=== PATIENT | female | born 1970 | race Caucasian/White ===

== ENCOUNTER 2025-01-14 13:02 | Outpatient (AMB) | payer OTHER, SELFPAY ==
--- NOTE | 2025-01-14 13:13 | MHC.PC.OV ---
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 Intake Note: New patient visit Chuck Boner Required: No Allergies Sulfa (Sulfonamide Antibiotics) Allergy (Severe, Verified 01/14/25 13:17) Migraine sulfamethoxazole [From Bactrim] Allergy (Unknown, Verified 01/14/25 13:17) Headache trimethoprim [From Bactrim] Allergy (Unknown, Verified 01/14/25 13:17) Headache Medication List - Last Reconciled 01/14/25 by Janice Campuzano MD apremilast (Otezla) mg PO betamethasone valerate 0.1% 1 appl topical DAILY PRN omeprazole 40 mg PO DAILY paroxetine HCl 10 mg PO DAILY sumatriptan succinate take 1 tab at onset of headache; if no relief may repeat 1 tab after at least 2 hrs; max = 4 tabs/24 hr PO tirzepatide (weight loss) (Zepbound) 2.5 mg (0.5 mL) subcut QWEEK Tobacco use date assessed: 01/14/25 Dental Screening Dental Screen Date: 01/14/25 Did you have a dental visit in the last 12 months?: Yes Did you have a dental problem in the last 6 months where you did not have access to dental care?: No Was dental information given to patient?: Patient has dentist HPI HPI Comments History of Present Illness Details 54 year old female with a past medical history of anxiety, GERD, psoriasis, migraines presenting to reestablish care Anxiety/depression: Stable on paxil 10mg daily. Previously tried wellbutrin, stopped when ran out. Thinks she would like to stay off of it. She continues to follow with a counselor every 2 weeks. GERD: Stable on PPI. Was following with Dr [place]. History of gastritis on EGD. xrt thought to have played a role. The pantoprazole does not seem to be working anymore. Heme/onc: history of right breast cancer diagnosed in 2011. s/p chemo, xrt and double mastectomy. s/p hysterectomy BSO 09/2014. Was following with Dr Alcantara, retired. Has appt in April. Psoriasis: low dose otezla -working great. follows with [facility] ROS CONSTITUTIONAL: Denies weight loss, fever and chills. HEENT: Denies changes in vision and hearing. RESPIRATORY: Denies SOB and cough. CV: Denies palpitations and CP GI: Denies abdominal pain, nausea, vomiting and diarrhea. : Denies dysuria and urinary frequency. MSK: Denies new myalgia and joint pain. SKIN: Denies rash and pruritus. NEUROLOGICAL: Denies headache PSYCHIATRIC: Denies recent changes in mood. PHYSICAL EXAM: GENERAL: Alert and oriented x 3. NAD EYES: EOMI. Anicteric. HENT: Moist mucous membranes. No scleral icterus. No cervical lymphadenopathy. LUNGS: Clear to auscultation bilaterally. CARDIOVASCULAR: Regular rate and rhythm. No murmur. No JVD. ABDOMEN: Soft, non-tender +bs EXTREMITIES: No edema. Non-tender. SKIN: No rashes or lesions. Warm. NEUROLOGIC: No focal neurological deficits. CN II-XII grossly intact PSYCHIATRIC: Cooperative. Appropriate mood and affect [facility] Surgical History H/O tubal ligation H/O dilation and curettage Hx of appendectomy H/O LEEP H/O bilateral mastectomy H/O: hysterectomy Family History Mother Diabetes mellitus HTN (hypertension) High cholesterol Father Acute myocardial infarction Pulmonary embolism Asthma HTN (hypertension) High cholesterol Cardiovascular disease Cancer of kidney Maternal Grandmother Cardiovascular disease Cancer Paternal Grandfather Cardiovascular disease Paternal Grandfather Cancer Social History Housing: House Alcohol intake: current Patient Tobacco Use Status: Never used Tobacco e-Cigarette/Vaping Use: Never Used Second Hand Smoke Exposure: No service: No Current occupational status: unemployed Current occupational exposures/hazards: No Cognitive needs: No Hearing needs: No Vision needs: Yes (glasses) Questionnaire PHQ-9 Over the last 2 weeks, how often have you been bothered by any of the following problems? 1. Little interest or pleasure in doing things: several days 2. Feeling down, depressed, or hopeless: several days 3. Trouble falling or staying asleep, or sleeping too much: several days 4. Feeling tired or having little energy: not at all 5. Poor appetite or overeating: several days 6. Feeling bad about yourself - or that you are a failure or have let yourself or your family down: not at all 7. Trouble concentrating on things, such as reading the newspaper or watching television: several days 8. Moving or speaking so slowly that other people could have noticed. Or the opposite - being so fidgety or restless that you have been moving around a lot more than usual: not at all 9. Thoughts that you would be better off or of hurting yourself in some way: not at all Total score: 5 Depression Screening Interpretation: Positive Depression Screening Follow-up: Existing condition Depression Screening Done: Yes 78221 - PHQ-9 Billing: Yes Source: Developed by Drs. Poncho Galvan, Daja Schwab, Khoi Enciso and colleagues, with an educational serina from [employer]. Thrive Questionnaire Date Thrive assessed: 01/14/25 I am a: Patient What is your living situation today?: I have a steady place to live Within the past 12 months, did the food you bought not last and you didn't have the money to get more?: Never true Within the past 12 months, did you worry whether your food would run out before you got money to buy more?: Never true Do you have trouble paying for medicines?: No Do you have trouble getting transportation to medical appointments?: No Do you have trouble paying your heating and electricity bill?: No Do you have trouble taking care of your child, family member or friend?: No Do you have trouble with day-to-day activities such as bathing, preparing meals, shopping, managing finances, etc.?: No Are you currently unemployed and looking for a job?: No Are you interested in more education?: No Please select the resources that you would like help with: None Currently or been in a relationship where the following occur: No concerns reported THRIVE Score: 0 AUDIT C Alcohol Use Questionnaire (AUDIT-C) 1. How often do you have a drink containing alcohol?: Never 3. How often do you have six or more drinks on one occasion?: Never Total Score: 0 BOBBY-7 AMB Questionnaire BOBBY-7 Date BOBBY - 7 assessed: 01/14/25 Feeling nervous, anxious, or on edge: 1 = Several days Not being able to stop or control worryin = Several days Worrying too much about different things: 1 = Several days Trouble relaxin = Several days Being so restless that it is hard to sit still: 0 = Not at all Becoming easily annoyed or irritable: 1 = Several days Feeling afraid as if something awful might happen: 0 = Not at all Total BOBBY-7 score (0-4 normal; 5-9 mild; 10-14 moderate; 15-21 severe): 5 Source: Developed by Drs. Poncho Galvan, Daja Schwab, Khoi Enciso and colleagues, with an educational serina from [employer]. BOBBY-7 Assessment Billing BOBBY-7 Assessment Tool: BOBBY-7 Assessment 19103 Physical exam (Primary Care) Vital Signs: Last Vital Signs Pulse 82 01/14/25 13:23 Resp 16 01/14/25 13:23 BP 134/100 H 01/14/25 13:31 Pulse Ox 97 01/14/25 13:23 Oxygen Delivery Method Room Air 01/14/25 13:23 BMI result Body Mass Index 38.8 Tobacco/Smoking Status: Tobacco use Status Tobacco use date assessed 01/14/25 01/14/25 13:25 Patient Tobacco Use Status Never used Tobacco 01/14/25 13:38 e-Cigarette/Vaping Use Never Used 01/14/25 13:38 PHQ-9: PHQ-9 Score PHQ-9: Total score 5 01/14/25 13:46 Depression Screening Interpretation: Positive Depression Screening Follow-up: Existing condition Thrive Assessment: Date of Thrive Assessment Date Thrive assessed 01/14/25 01/14/25 13:39 Currently or been in a relationship where the following occur: No concerns reported Coding Level of Care Code Est Pt Level 4 (06339) Complex EM visit Add On G2211 Diagnoses Primary hypertension I10 Hypertension type: primary hypertension Anxiety F41.9 Obesity (BMI 30-39.9) E66.9 Gastroesophageal reflux disease, unspecified whether esophagitis present K21.9 Esophagitis presence: esophagitis presence not specified Gastritis without bleeding, unspecified chronicity, unspecified gastritis type K29.70 Chronicity: unspecified Gastritis bleeding: without bleeding Gastritis type: unspecified gastritis Additional Codes BOBBY-7 Assessment Billing - BOBBY-7 Assessment Tool: BOBBY-7 Assessment 60769 ([id number]) PHQ-9 - 97034 - PHQ-9 Billing: Yes ([id number]) Assessment & Plan Assessment & Plan (1) Hypertension: Code(s): I10 - Essential (primary) hypertension Category: Medical Qualifiers: Hypertension type: primary hypertension Qualified Code(s): I10 - Essential (primary) hypertension (2) Anxiety: Code(s): F41.9 - Anxiety disorder, unspecified Category: Medical (3) Obesity (BMI 30-39.9): Code(s): E66.9 - Obesity, unspecified Category: Medical (4) GERD (gastroesophageal reflux disease): Code(s): K21.9 - Gastro-esophageal reflux disease without esophagitis Category: Medical Qualifiers: Esophagitis presence: esophagitis presence not specified Qualified Code(s): K21.9 - Gastro-esophageal reflux disease without esophagitis (5) Gastritis: Code(s): K29.70 - Gastritis, unspecified, without bleeding Category: Medical Qualifiers: Chronicity: unspecified Gastritis bleeding: without bleeding Gastritis type: unspecified gastritis Qualified Code(s): K29.70 - Gastritis, unspecified, without bleeding Plan Reestablish care Interval history reviewed HTN-needs to restart medications-sent HTN, obesity-would benefit from GLP which has been sent Migraine-stable on triptan Orders: Orders Lipid Panel Today E66.9 - Obesity, unspecified, F41.9 - Anxiety disorder, unspecified, I10 - Essential (primary) hypertension, K21.9 - Gastro-esophageal reflux disease without esophagitis Hemoglobin A1c Today E66.9 - Obesity, unspecified, F41.9 - Anxiety disorder, unspecified, I10 - Essential (primary) hypertension, K21.9 - Gastro-esophageal reflux disease without esophagitis Complete Blood Count Auto Diff Today E66.9 - Obesity, unspecified, F41.9 - Anxiety disorder, unspecified, I10 - Essential (primary) hypertension, K21.9 - Gastro-esophageal reflux disease without esophagitis Comprehensive Met. Panel Today E66.9 - Obesity, unspecified, F41.9 - Anxiety disorder, unspecified, I10 - Essential (primary) hypertension, K21.9 - Gastro-esophageal reflux disease without esophagitis Referrals Gastroenterology Referral K21.9 - Gastro-esophageal reflux disease without esophagitis, K29.70 - Gastritis, unspecified, without bleeding Medications: New sumatriptan succinate take 1 tab at onset of headache; if no relief may repeat 1 tab after at least 2 hrs; max = 4 tabs/24 hr PO 12 tabs 3RF tirzepatide (weight loss) (Zepbound) for 4 weeks 2.5 mg (0.5 mL) subcut QWEEK 2 mL 0RF E66.9 - Obesity, unspecified, I10 - Essential (primary) hypertension omeprazole 40 mg PO DAILY 90 caps 3RF chlorthalidone 25 mg PO DAILY 90 tabs 3RF
[2025-01-14 13:23] VITALS: BP 146/102; PULSE 82; RESP 16; O2SAT 97; BMI 38.8
[2025-01-14 13:31] VITALS: BP 134/100
--- OUTSIDE RECORDS SUMMARY | 2025-01-14 15:35 | XMS_ITS | Clinical Summary ---
Author Organization [facility] Address [address] [place] [address] Care Team Providers Care Electrical Linesworker Name Role Phone Janice Campuzano MD Primary Care Provider [phone] Surgical History Surgery Date Site/Laterality Comments APPENDECTOMY PROCEDURE:APPENDECTOMY TUBAL LIGATION PROCEDURE:TUBAL LIGATION CERVICAL BIOPSY W/ LOOP ELEC TRODE EXCISION PROCEDURE:CERVICAL BIOPSY W/ LOOP ELECTRODE EXCISION Medical History Medical History Date Comments Malignant neoplasm of left b reast (CMS/HCC V24, CMS/HCC V28) DX:Malignant neoplasm of le ft breast (HCC) Major depressive disorder, s pretty episode, unspecified DX:Major depressive disorder , single episode, unspecified Social History Tobacco Use Types Packs/Day Years Used Date Smoking Tobacco: Never Smokeless Tobacco: Never Alcohol Use Standard Drinks/Week Comments No 0 (1 standard drink = 0.6 oz pur e alcohol) Comments Unknown Sex and Gender Information Value Date Recorded Sex Assigned at Not on file Legal Sex Female 6:12 AM EST Gender Identity Not on file Sexual Orientation Not on file Obstetrics History Last Filed Vital Signs Vital Sign Reading Time Taken Comments Blood Pressure 150/91 05/30/2024 9:23 AM EDT Sitting Right arm Pulse 84 05/30/2024 9:23 AM EDT Temperature - - Respiratory Rate - - Oxygen Saturation - - Inhaled Oxygen Concentration - - Weight 101 kg (223 lb) 05/30/2024 9:23 AM EDT Height 165.1 cm (5' 5 ) 05/30/2024 9:23 AM EDT Body Mass Index 37.11 05/30/2024 9:23 AM EDT Plan of Treatment Upcoming Encounters Date Type Department Care Team (Late st Contact Info) Description 05/29/2025 9:00 AM EDT Office Visit [facility] Hematology Oncology [address] [place] [address] Christiano Alcantara MD [address] [place] [address] Health Maintenance Due Date Last Done Comments Breast Cancer Screening 1972 COVID-19 Vaccine (#1) 1977 DTaP,Tdap,and Td Vaccines (1 - Tdap) 1991 Hepatitis B Vaccines (1 of 3 - 19+ 3-dose series) 1991 Pneumococcal Vaccine: 50+ Ye ars (1 of 2 - PCV) 1991 Pneumococcal Vaccine: Pediat rics (0 to 5 Years) and At-Risk Patients (6 to 64 Years) (1 of 2 - PCV) 1991 Zoster Vaccines (1 of 2) 1991 Cervical Cancer Screening: P ap Smear 1993 Colorectal Cancer Screening: Colonoscopy 08/22/2022 Depression Screening 08/22/2022 HIV Screening 08/22/2022 Hepatitis C Screening 08/22/2022 Social Influencers of Health Screening 08/22/2022 Influenza Vaccine (Season Ended) 2025 HIB Vaccines Aged Out No longer eligi ble based on patient's age to complete this topic HPV Vaccines Aged Out No longer eligi ble based on patient's age to complete this topic Hepatitis A Vaccines Aged Out No long er eligible based on patient's age to complete this topic IPV Vaccines Aged Out No longer eligi ble based on patient's age to complete this topic MMR Vaccines Aged Out No longer eligi ble based on patient's age to complete this topic Meningococcal ACWY Vaccine Aged Out N o longer eligible based on patient's age to complete this topic Meningococcal B Vaccine Aged Out No l onger eligible based on patient's age to complete this topic RSV Immunization Patients Un elma 20 months Aged Out No longer eligible b ased on patient's age to complete this topic Varicella Vaccines Aged Out No longer eligible based on patient's age to complete this topic Insurance [facility] MEDICAID [place] [id number] Care Teams Electrical Linesworker Relationship Specialty Start Date End Date Janice Campuzano MD PCP - General 05/31/23
--- OUTSIDE RECORDS SUMMARY | 2025-01-14 15:35 | XMS_ITS | Clinical Summary ---
Author Organization [facility] Address [address] [place] [address] Care Team Providers Care Engagement Lead Name Role Phone Janice Campuzano MD Primary Care Provider [phone] Allergies Active Allergy Reactions Criticality Noted Date Comments Sulfa Antibiotics 04/12/2017 Medications Medication Sig Dispensed Refills Start Date End Date Status pantoprazole (PROTONIX) 40 MG tablet Take by mouth. 0 Active buPROPion (WELLBUTRIN XL) 300 MG 24 hr tablet Take 1 tablet (300 mg total) by mouth daily. 0 Active PARoxetine (PAXIL) 20 MG tablet Take 1 tablet (20 mg total) by mouth daily. 0 Active rizatriptan (MAXALT) 10 MG tablet Take 1 tablet (10 mg total) by mouth as needed for migraine. May repeat in 2 hours if needed 0 Active Halobetasol Propionate 0.05 % LOTN Apply 1 application topically daily. 60 mL 1 08/24/2021 Active Apremilast (Otezla) 30 MG TABS Take 15 mg by mouth daily. 0 Active Active Problems Problem Noted Date Diagnosed Date Reactive depression 11/14/2017 Malignant neoplasm of overla pping sites of right female breast 04/15/2017 Social History Tobacco Use Types Packs/Day Years Used Date Smoking Tobacco: Never Smokeless Tobacco: Never Alcohol Use Standard Drinks/Week Comments No 0 (1 standard drink = 0.6 oz pur e alcohol) Sex and Gender Information Value Date Recorded Sex Assigned at Not on file Gender Identity Not on file Sexual Orientation Not on file Job Start Date Occupation Industry Not on file Not on file Not on file Last Filed Vital Signs Vital Sign Reading Time Taken Comments Blood Pressure 150/91 05/30/2024 9:23 AM EDT Pulse 84 05/30/2024 9:23 AM EDT Temperature 36.5 ??C (97.7 ??F) 05/30/2024 9:23 AM ED T Respiratory Rate - - Oxygen Saturation 97% 05/30/2024 9:23 AM EDT Inhaled Oxygen Concentration - - Weight 101.2 kg (223 lb) 05/30/2024 9:23 AM EDT Height 165.1 cm (5' 5 ) 05/30/2024 9:23 AM EDT Body Mass Index 37.11 05/30/2024 9:23 AM EDT Plan of Treatment Health Maintenance Due Date Last Done Comments Hepatitis B Vaccines (1 of 3 - 3-dose series) 1972 Hepatitis C Screening 1972 COVID-19 Vaccine (#1) 1977 Pneumococcal Vaccine (1 of 2 - PCV) 1978 Depression Screening 1984 BMI Counseling 1990 Preventative Health Evaluation 1990 DTap / Tdap / Td (1 - Tdap) 1991 Shingrix-Zoster Vaccine (1 of 2) 1991 Cervical Cancer Screening (P ap Smear) 1993 Colon Cancer Screening (Colonoscopy) 2017 Breast Cancer Screening (Mammogram) 2022 Influenza Vaccine (#1) 2024 RSV Ped < 20 months Aged Out No longe r eligible based on patient's age to complete this topic Care Teams Engagement Lead Relationship Specialty Start Date End Date Janice Campuzano MD PCP - General Internal Medicine 05/31/23
== END 2025-01-14 13:53 | disposition home or self-care (01) ==
LOC: HO.HMCFM 13:03
PROVIDERS: PCP Internal Medicine; Visit Provider Internal Medicine
DX: I10 Essential (primary) hypertension (principal); E66.9 Obesity, unspecified; Z68.38 Body mass index [BMI] 38.0-38.9, adult; F41.9 Anxiety disorder, unspecified; K21.9 Gastro-esophageal reflux disease without esophagitis; K29.70 Gastritis, unspecified, without bleeding

== ENCOUNTER → 2025-01-14 13:02 | Outpatient (BNVA) | payer OTHER, SELFPAY | PROVIDERS: PCP Internal Medicine; Visit Provider Internal Medicine | DX: I10 Essential (primary) hypertension (principal); F41.9 Anxiety disorder, unspecified; E66.9 Obesity, unspecified; Z68.38 Body mass index [BMI] 38.0-38.9, adult; K21.9 Gastro-esophageal reflux disease without esophagitis; K29.70 Gastritis, unspecified, without bleeding | CPT/HCPCS: 96127; 99212 ==

== ENCOUNTER 2025-05-29 12:30 | Outpatient (AMB) | payer OTHER, SELFPAY ==
--- NOTE | 2025-05-29 12:50 | MHC.OFFVIS ---
Vital Signs 05/29/25 12:51 Height 5 ft 3.45 in Weight 220 lb 7.396 oz BMI 38.5 BP 152/103 H Blood Pressure Location Lt brachial Position Sitting Pulse 77 Intake Visit Reasons: Gastroesophageal reflux disease (GERD) Intake Note: Alycia presents in the office as a new patient for GERD. CC: States she is here for acid reflux - no other concerns GI but states she has had it for years. She used to go to [facility]. Director Of Medical Education Required: No Allergies Sulfa (Sulfonamide Antibiotics) Allergy (Severe, Verified 05/29/25 12:52) Migraine sulfamethoxazole (From Bactrim) Allergy (Unknown, Verified 05/29/25 12:52) Headache trimethoprim (From Bactrim) Allergy (Unknown, Verified 05/29/25 12:52) Headache HPI HPI Gastroesophageal reflux disease (GERD): Details: 55-year-old female with past medical history of obesity, hypertension, anxiety, GERD, gastritis, breast CA, status post bilateral mastectomy is here today for initial consultation. Patient reports acid reflux and dealing with acid reflux for the past several years. Patient is taking omeprazole daily. Reports that for the most part her symptoms are suppressed, however depending on what she eats she will continue to have acid reflux. Sometimes she reports to have epigastric pain postprandially. Abdominal bloating postprandially and sometimes not related to meals. Reports that she is moving her bowels well for the most part. Patient was supposed to go for colonoscopy few years ago, however she was going in under chemo and her oncologist told her that she needs to wait. Patient reports occasional dyspepsia without dysphagia or odynophagia. Denies any melena, hematochezia, unintentional weight loss or ribbon like stools. Denies any family history of colorectal cancer. REPLACED BY [facility] Surgical History History of esophagogastroduodenoscopy (EGD) H/O tubal ligation H/O dilation and curettage Hx of appendectomy H/O LEEP H/O bilateral mastectomy H/O: hysterectomy Family History Mother Diabetes mellitus HTN (hypertension) High cholesterol Father Acute myocardial infarction Pulmonary embolism Asthma HTN (hypertension) High cholesterol Cardiovascular disease Cancer of kidney Maternal Grandmother Cardiovascular disease Cancer Paternal Grandfather Cardiovascular disease Paternal Grandfather Cancer Social History Housing: House Alcohol intake: current Patient Tobacco Use Status: Never used Tobacco e-Cigarette/Vaping Use: Never Used Second Hand Smoke Exposure: No service: No Current occupational status: unemployed Current occupational exposures/hazards: No Cognitive needs: No Hearing needs: No Vision needs: Yes (glasses) Review of Systems Const Denies weight gain and Denies weight loss ENT Reports no additional complaints, Denies dysphagia and Denies odynophagia Card Reports no additional complaints Resp Reports no additional complaints GI Denies abdominal pain, Denies belching, Denies melena, Denies bloating, Denies change in bowel habits, Denies dysphagia, Denies excessive flatus, Denies dyspepsia, Reports heartburn, Denies diarrhea, Denies loose stools, Denies nausea, Denies odynophagia and Denies vomiting Reports no additional complaints Musc Reports no additional complaints Neuro Reports no additional complaints Psych Reports no additional complaints Endo Reports no additional complaints Physical Exam Vital Signs: Last Vital Signs Pulse 77 05/29/25 12:51 BP 152/103 H 05/29/25 12:51 BMI result Body Mass Index 38.5 Const General: healthy appearing and no acute distress Nutritional Appearance: well nourished and obese Orientation/consciousness: patient oriented x3 Resp Effort & Inspection: normal respiratory effort, able to speak in complete sentences, no tracheal deviation and symmetric chest movement Auscultation: clear to auscultation bilaterally Cardio Rate: regular rate GI Inspection: Yes normal to inspection, No distended and Yes obesity Palpation (GI): Soft to palpation, not firm, nontender and No hepatosplenomegaly present Auscultation: normal bowel sounds General: Yes no CVA tenderness Back/Spine/Pelvis Back: no CVA tenderness Skin General skin exam: elasticity normal, turgor normal and dry skin Neuro General: patient oriented x3 Psych Appearance: grossly normal Mental Status: mental status grossly normal Assessment & Plan Assessment & Plan (1) GERD (gastroesophageal reflux disease): Code(s): K21.9 - Gastro-esophageal reflux disease without esophagitis Category: Medical Qualifiers: Esophagitis presence: esophagitis presence not specified Qualified Code(s): K21.9 - Gastro-esophageal reflux disease without esophagitis (2) Postprandial epigastric pain: Code(s): R10.13 - Epigastric pain (3) Screen for colon cancer: Code(s): Z12.11 - Encounter for screening for malignant neoplasm of colon (4) Postprandial abdominal bloating: Code(s): R14.0 - Abdominal distension (gaseous) Plan Patient will continue taking omeprazole as this is working for her. Will send her for upper GI with barium swallow, check transglutaminase, lipase, thyroid study, vitamin B12, folate and vitamin-D levels. Avoid dietary triggers late night snacking. Staying upright for minimum 3 hours after meals discussed with patient. Patient has not had a colonoscopy and we will send her for colonoscopy in the near future. We will also send her for upper endoscopy to further evaluate for gastritis, esophagitis, duodenitis, Barnhart's, gastric tube peptic ulcers. Patient will follow-up in our office in 2-3 months. Patient will call us if she will have any GI concerning symptoms. Patient is agreeable to current plan of care and verbalizes understanding of instructions. She was given the opportunity to ask questions and all questions answered. Thank you for allowing me to participate in her care Message sent to surgical schedulers to book procedure for patient Orders: Orders [place] upper GI w air w Ba Swallow 05/29/25 K21.9 - Gastro-esophageal reflux disease without esophagitis Transglutaminase IgA 05/29/25 R10.9 - Unspecified abdominal pain TSH reflex Free T4 05/29/25 K59.00 - Constipation, unspecified Lipase 05/29/25 R10.9 - Unspecified abdominal pain Vitamin B12 and Folate 05/29/25 R19.7 - Diarrhea, unspecified Vitamin D 25-OH (D2 and D3) 05/29/25 E55.9 - Vitamin D deficiency, unspecified Coding Level of Care Code New Pt Level 4 (28072) Diagnoses Gastroesophageal reflux disease, unspecified whether esophagitis present K21.9 Esophagitis presence: esophagitis presence not specified Postprandial epigastric pain R10.13 Screen for colon cancer Z12.11 Postprandial abdominal bloating R14.0 Time Spent (min) 45 Comment 35 minutes spent with patient and additional 10 minutes spent reviewing her records
[2025-05-29 12:51] VITALS: BP 152/103; PULSE 77; BMI 38.5
--- OUTSIDE RECORDS SUMMARY | 2025-05-29 15:28 | XMS_ITS | Clinical Summary ---
Author Organization [facility] Address [address] [place] [address] Care Team Providers Care Drywaller Name Role Phone Janice Campuzano MD Primary Care Provider [phone] Allergies Active Allergy Reactions Criticality Noted Date [...] 84 05/30/2024 9:23 AM EDT Temperature 36.5 C (97.7 F) 05/30/2024 9:23 AM EDT Respiratory Rate - - Oxygen Saturation 97% [...] Cancer Screening (Mammogram) 2022 Influenza Vaccine (#1) 2025 RSV Ped < 20 months Aged Out No longe r eligible based on patient's age to complete this topic Care Teams Drywaller Relationship Specialty Start Date End Date Janice Campuzano MD PCP - General Internal Medicine 05/31/23
--- OUTSIDE RECORDS SUMMARY | 2025-05-29 15:28 | XMS_ITS | Clinical Summary ---
Author Organization [facility] Address [address] [place] [address] Phone Care Team Providers Care Bin Worker Name Role Phone Janice Campuzano MD Primary Care Provider [phone] Active Problems Problem Noted Date Diagnosed Date Malignant neoplasm of overla pping sites of right female breast ([facility] V24, [facility] V28) 04/15/2017 Surgical History Surgery Date Site/Laterality Comments APPENDECTOMY PROCEDURE:APPENDECTOMY TUBAL LIGATION PROCEDURE:TUBAL LIGATION CERVICAL BIOPSY W/ LOOP ELEC TRODE EXCISION PROCEDURE:CERVICAL BIOPSY W/ LOOP ELECTRODE EXCISION Medical History Medical History Date Comments Malignant neoplasm of left b reast ([facility] V24, [facility] V28) DX:Malignant neoplasm of le ft breast ([facility]) Major depressive disorder, s pretty episode, unspecified [...] Care Team (Late st Contact Info) Description 06/03/2025 10:00 AM EDT Office Visit [facility] [address] [place] [address] Joanne Reina DO [address] [place] [address] Health Maintenance Due Date Last Done Comments Breast Cancer Screening 1972 COVID-19 Vaccine (#1) 1977 DTaP,Tdap,and Td Vaccines (1 - Tdap) 1991 Hepatitis B Vaccines (1 of 3 - 19+ 3-dose series) 1991 Pneumococcal Vaccine: 50+ Ye ars (1 of 2 - PCV) 1991 Zoster Vaccines (1 of 2) 1991 Cervical Cancer Screening: P ap Smear 1993 Colorectal Cancer Screening: Colonoscopy 08/22/2022 HIV Screening 08/22/2022 Hepatitis C Screening 08/22/2022 Social Influencers of Health Screening 08/22/2022 Depression Screening 09/19/2024 Influenza Vaccine (#1) 2025 HIB Vaccines Aged Out No longer [...] patient's age to complete this topic Insurance [facility] MEDICAID [place]ENE MARQUEZ [id number] Care Teams Bin Worker Relationship Specialty Start Date End Date Janice Campuzano MD PCP - General 05/31/23
== END 2025-05-29 13:22 | disposition home or self-care (01) ==
LOC: HO.HGI 12:31
PROVIDERS: PCP Internal Medicine; Visit Provider Nurse Practitioner Family
DX: K21.9 Gastro-esophageal reflux disease without esophagitis (principal); R10.13 Epigastric pain; R14.0 Abdominal distension (gaseous)
CPT/HCPCS: 99204

== ENCOUNTER → 2025-05-29 12:30 | Outpatient (BNVA) | payer OTHER, SELFPAY | PROVIDERS: PCP Internal Medicine; Visit Provider Nurse Practitioner Family | DX: Z12.11 Encounter for screening for malignant neoplasm of colon (principal); K21.9 Gastro-esophageal reflux disease without esophagitis; R10.13 Epigastric pain; R14.0 Abdominal distension (gaseous) | CPT/HCPCS: 99202 ==

== ENCOUNTER 2025-07-22 11:15 | Outpatient (AMB) | payer OTHER, SELFPAY ==
--- NOTE | 2025-07-22 11:39 | A.OFFPC_ITS ---
Vital Signs 07/22/25 11:40 Height 5 ft 3.45 in Weight 225 lb 2 oz BMI 39.3 BP 108/84 Blood Pressure Location Lt brachial Position Sitting Respiration 14 Pulse 95 Pulse Source Pulse Oximeter Pulse Oximetry (%) 97 Oxygen Delivery Method Room Air Intake Visit Reasons: cpe Intake Note: Physical Allergies Sulfa (Sulfonamide Antibiotics) Allergy (Severe, Verified 07/22/25 11:39) Migraine sulfamethoxazole (From Bactrim) Allergy (Unknown, Verified 07/22/25 11:39) Headache trimethoprim (From Bactrim) Allergy (Unknown, Verified 07/22/25 11:39) Headache Tobacco use date assessed: 07/22/25 Dental Screening Dental Screen Date: 01/14/25 HPI HPI Comments History of Present Illness Details 55 year old female with a past medical h istory of breast cancer, anxiety, GERD, psoriasis, migraines presenting for CPE Anxiety/depression: Stable on paxil 10mg daily. Previously tried wellbutrin, stopped when ran out. She continues to follow with a counselor every 2 weeks. GERD: On PPI. History of gastritis on EGD. xrt thought to have played a role. Switched from pantoprazole to omeprazole. Saw [facility] and will have double endoscopy Heme/onc: history of right breast cancer diagnosed in 2011. s/p chemo, xrt and double mastectomy. s/p hysterectomy BSO 09/2014. Was following with Dr Alcantara, retired, still with [facility]. Seen 05/2025 Psoriasis: low dose otezla -working great. follows with [facility] Colonoscopy: Will be going for double endoscopy in September s/p hysterectomy ROS CONSTITUTIONAL: Denies weight loss, fever and chills. HEENT: Denies changes in vision and hearing. RESPIRATORY: Denies SOB and cough. CV: Denies palpitations and CP GI: Denies abdominal pain, nausea, vomiting and diarrhea. : Denies dysuria and urinary frequency. MSK: Denies new myalgia and joint pain. SKIN: Denies rash and pruritus. NEUROLOGICAL: Denies headache PSYCHIATRIC: Denies recent changes in mood. PHYSICAL EXAM: GENERAL: Alert and oriented x 3. NAD EYES: EOMI. Anicteric. HENT: Moist mucous membranes. No scleral icterus. No cervical lymphadenopathy. LUNGS: Clear to auscultation bilaterally. CARDIOVASCULAR: Regular rate and rhythm. No murmur. No JVD. ABDOMEN: Soft, non-tender +bs EXTREMITIES: No edema. Non-tender. SKIN: No rashes or lesions. Warm. NEUROLOGIC: No focal neurological deficits. CN II-XII grossly intact PSYCHIATRIC: Cooperative. Appropriate mood and affect [facility] Surgical History History of esophagogastroduodenoscopy (EGD) H/O tubal ligation H/O dilation and curettage Hx of appendectomy H/O LEEP H/O bilateral mastectomy H/O: hysterectomy Family History Mother Diabetes mellitus HTN (hypertension) High cholesterol Father Acute myocardial infarction Pulmonary embolism Asthma HTN (hypertension) High cholesterol Cardiovascular disease Cancer of kidney Maternal Grandmother Cardiovascular disease Cancer Paternal Grandfather Cardiovascular disease Paternal Grandfather Cancer Social History Housing: House Alcohol intake: current Patient Tobacco Use Status: Never used Tobacco e-Cigarette/Vaping Use: Never Used Second Hand Smoke Exposure: No service: No Current occupational status: unemployed Current occupational exposures/hazards: No Cognitive needs: No Hearing needs: No Vision needs: Yes (glasses) Questionnaire Thrive Questionnaire Date Thrive assessed: 01/14/25 I am a: Patient What is your living situation today?: I have a steady place to live Within the past 12 months, did the food you bought not last and you didn't have the money to get more?: Never true Within the past 12 months, did you worry whether your food would run out before you got money to buy more?: Never true Do you have trouble paying for medicines?: No Do you have trouble getting transportation to medical appointments?: No Do you have trouble paying your heating and electricity bill?: No Do you have trouble taking care of your child, family member or friend?: No Do you have trouble with day-to-day activities such as bathing, preparing meals, shopping, managing finances, etc.?: No Are you currently unemployed and looking for a job?: No Are you interested in more education?: No Please select the resources that you would like help with: None Currently or been in a relationship where the following occur: No concerns reported THRIVE Score: 0 AUDIT C Alcohol Use Questionnaire (AUDIT-C) 1. How often do you have a drink containing alcohol?: Never 3. How often do you have six or more drinks on one occasion?: Never Total Score: 0 BOBBY-7 AMB Questionnaire BOBBY-7 Date BOBBY - 7 assessed: 01/14/25 Source: Developed by Drs. Poncho Galvan, Daja Schwab, Khoi Enciso and colleagues, with an educational serina from [employer]. Physical exam (Primary Care) Vital Signs: Last Vital Signs Pulse 95 07/22/25 11:40 Resp 14 07/22/25 11:40 BP 108/84 07/22/25 11:40 Pulse Ox 97 07/22/25 11:40 Oxygen Delivery Method Room Air 07/22/25 11:40 BMI result Body Mass Index 39.3 Tobacco/Smoking Status: Tobacco use Status Tobacco use date assessed 07/22/25 07/22/25 11:44 Patient Tobacco Use Status Never used Tobacco 07/22/25 11:44 e-Cigarette/Vaping Use Never Used 07/22/25 11:44 Thrive Assessment: Date of Thrive Assessment Date Thrive assessed 01/14/25 07/22/25 11:44 Currently or been in a relationship where the following occur: No concerns reported Coding Level of Care Code Est Pt Prev Care 40-64y(72559) Diagnoses Physical exam Z00.00 Gastroesophageal reflux disease, unspecified whether esophagitis present K21.9 Esophagitis presence: esophagitis presence not specified Primary hypertension I10 Hypertension type: primary hypertension Obesity (BMI 30-39.9) E66.9 Assessment & Plan Assessment & Plan (1) Physical exam: Code(s): Z00.00 - Encounter for general adult medical examination without abnormal findings (2) GERD (gastroesophageal reflux disease): Code(s): K21.9 - Gastro-esophageal reflux disease without esophagitis Category: Medical Qualifiers: Esophagitis presence: esophagitis presence not specified Qualified Code(s): K21.9 - Gastro-esophageal reflux disease without esophagitis (3) Hypertension: Code(s): I10 - Essential (primary) hypertension Category: Medical Qualifiers: Hypertension type: primary hypertension Qualified Code(s): I10 - Essential (primary) hypertension (4) Obesity (BMI 30-39.9): Code(s): E66.9 - Obesity, unspecified Category: Medical Plan CPE Interval history reviewed Preventive measures for age discussed Depression is stable GERD-upcoming endoscopy HTN is stable Obesity-trial of phentermine. Insurance would not cover GLP Medications: New phentermine Goodrx if not covered [id number] [facility] GroupGDRX Member [id number] 37.5 mg PO DAILY 30 caps 3RF
[2025-07-22 11:40] VITALS: BP 108/84; PULSE 95; RESP 14; O2SAT 97; BMI 39.3
--- OUTSIDE RECORDS SUMMARY | 2025-07-22 14:19 | XMS_ITS | Data Portability ---
[facility] Address [address] [place] [phone] Care Team Providers Care Physician Assistant Surgery Name Role Phone HIM CCA OTHER SAMI PARKS Primary Care Provider [phone] Assessment Encounter Date Assessment Date Assessment LastModified by Organization Details LastModified Time 11/27/2024 11/27/2024 I provided real -time medical direction via phone for this encounter, and was available for additional phone based assistance as needed. I have reviewed and agree with the Assessment and Plan as documented by the Brand Executive. We discussed the diagnostic uncertainty of home visits and the risk associated with this. In this case I felt this to be an acceptable and reasonable amount of risk given the benefit of avoiding an ED visit. The patient given the opportunity to ask questions. Advised if develops CP/severe SOB/turning blue/uncontrolle d n/v/d /AMS/ syncope/ hi fever to call 911- verbalized understanding of instructions to the medic [email or web address] Not available 11/27/2024 19:25:02 Plan of Treatment Reminders Order Date Submit Date Provider Last Modified By Organization Details Last Modified Time Details Appointments None recorded. Lab rapid SARS CoV 2 Ag, QL IA, respiratory specimen 2024 025 [email or web address], [phone] 19:19:40 rapid flu (A+B) 2024 025 [email or web address], [phone] 19:19:41 Referral None recorded. Procedures None recorded. Surgeries None recorded. Imaging None recorded. Medication Orders benzonatate 200 mg capsule 2024 025 [facility][id number], [address] [place], [address], 19:23:19 Mucinex DM 60 mg-1,200 mg tablet,exte nded release 12 hr 2024 025 [facility][id number], [address] [place], [address], 19:23:19 Patient TargetsNo targets recorded. Patient InstructionsNo instructions recorded. Reason for Referral None Reported. Results Created Date Observation Date Name Description Value Unit Range Abnormal Flag Note LastModifiedBy Organization Detail LastModifiedTime 11/28/1911/27/2024 rapid flu (A+B) Flu negati ve Not Available [facility] ed [address] [place] [address], [phone] 11/27/2024 19:19:27 11/28/19 25 11/27/2024 rapid SARS CoV 2 Ag, QL IA, respi rator y speci men rapid SARS CoV 2 Ag, QL IA, respiratory specimen negati ve Not Available [facility] ed [address] [place] [address], [phone] 11/27/2024 19:19:26 Result Notes None recorded. Medical Equipment None Reported. Allergies Allergen ID Allergen Name Allergen Category Reaction Reaction Severity Criticality Documentation Date Start Date Code Code System Note Provider Name and Address Organization Details Recorded Time 24788 sulfameth oxazole medicatio n Not available Not available Not available 11/27/2024 12434 RxNorm Not Available [facility] 18:34:25 97425 Bactrim medicatio n Not available Not available Not available 11/27/2024 29218 9 RxNorm Not Available [facility] 18:34:25 Medications Name Sig Start Date Stop Date Status Note LastModified by Organization Details LastModified Time paroxetine 10 mg tablet active Not Available Not Available No t Available benzonatate 200 mg capsule TAKE 1 CAPSULE 3 TIMES A DAY BY ORAL ROUTE NEEDED, FOR COUGH. active Not Available Not Available N ot Available ondansetron HCl 4 mg tablet TAKE 1 TABLET BY MOUTH EVERY 8 HOURS NEEDED FOR NAUSEA active Not Available Not Available No t Available chlorthalidon e 25 mg tablet active Not Available Not Available Not Available triamcinolone acetonide 0.025 % topical cream APPLY TO AFFECTED AREAS TWICE DAILY FOR UP TO TWO WEEKS, BREAK ONE WEEK, REPEAT CYCLE NEEDED. active Not Available Not Available No t Available rizatriptan 10 mg disintegratin g tablet active Not Available Not Available Not Available paroxetine 30 mg tablet active Not Available Not Available No t Available pantoprazole 40 mg tablet,delaye d release active Not Available Not Available No t Available Mucus DM Max ER 60 mg-1,200 mg tablet,extend ed release TAKE 1 TABLET TWICE A DAY BY ORAL ROUTE, FOR COUGH/CANDY ESTION. active Not Available Not Available No t Available Otezla 30 mg tablet active Not Available Not Available Not Available Vtama 1 % topical cream APPLY A THIN LAYER TO AFFECTED AREAS OF PSORIASIS ON THE ELBOWS AND, NOSE, AND SHINS ONCE DAILY. active Not Available Not Available No t Available Vitals Date Recorded Heart rate Respiratory rate Oxygen saturation Oxygen saturation in Arterial blood by Pulse oximetry Body temperature Systolic And Diastolic Provider Name and Address Organization Details Last Updated DateTime 5 100 /min 14 /min 97 % 97 % 98 [degF] 140/100 mm[Hg] Janice Chen MD [address] [place] [address],[address], [place], [phone] [place] [address] [employer] 19:28:05 Date Recorded Body height Respiratory rate Body temperature Oxygen saturation Oxygen saturation in Arterial blood by Pulse oximetry Heart rate Body weight Systolic And Diastolic Provider Name and Address Organization Details Last Updated DateTime 5 167.64 cm 14 /min 98 [degF] 97 % 97 % 98 /min 55089.6 g 140/98 mm[Hg] Not Available [facility] 19:33:52 Social History None recorded. Functional Status None recorded. Mental Status None recorded. Family History Nothing Reported. Medical History No medical history recorded. Gynecological HistoryNo gynecological history recorded. Obstetrics History GPAL:G 0 P 0 0 0 0 Past Encounters Encounter ID Performer Location Encounter Start Date Encounter Closed Date Diagnosis/Indication Diagnosis SNOMED-CT Code Diagnosis ICD10 Code Diagnosis IMO Codes Diagnosis Note [id number] Janice Chen MD [facility] [employer] [address] [place] [phone] 11/27/2024 19:13:59 11/28/2024 16:43:55 Upper respiratory infection [id number] J06.9 rapid viral testing negative-p atient has no history of asthma/[employer] D, clear lungs/no more fevers, thus this is likely viral and antibiotic s are not indicated at this time. If Advised to call us back if she needs another visit/rest stay well-hydra damien-clear liquids-sims s not had much of an appetite, does not appear clinically dehydrated to the medic/has had no nausea vomiting -diarrhea now gone -advised the importance of pushing p.o. fluids Discussed with patient Mucinex DM to have a cough suppressan t and loosen any congestion in her chest, also benzonatat e as a cough suppressan t especially so she can sleep-she is aware they are not covered. The medic reviewed how to get a Good Rx card and she was agreeable with the plan to try the prescripti ons-pharma cy and allergies reviewed Patient has someone who can pickers material handlers her prescripti ons tonight Health Concerns Section Related Observation LastModified by Organization Detai ls LastModified Time None Recorded Concern Status LastModified by Organization Details LastModified Time None Recorded Advance Directives Directive None Recorded Payers Insurance Date Sequence Insurance Name Policy Number Policy Bryant Covered Member ID Bryant Member ID Guarantor Name 11/27/2024 1 [facility] - DOS ON OR AFTER 2022 - DUAL ELIGIBLE - FDC OPTIONS AND ONE CARE (MEDICARE REPLACEMENT/AD VANTAGE - HMO) Darcie Mancini [id number] Darcie Mancini Notes Date Note Type Note Provider Name and Address Organization Details Recorded Time 11/27/2024 text/html ROS as noted in the HPI CRC Nurse Triage Notes (Nohelia Roberson - RN): Reason For Request: fever/chills/headach e/cough Patient Reports: Cough, fever greater than 2 days ; CoughDenies: Increased work of breathing/labored with or without fever Unable to speak in full sentences without distress Discoloration of skin -cyanosis Needs to sleep sitting up, can t catch breath Shortness of breath in setting of confusion Lower extremity swelling History of asthma, increased use of inhaler COPD COVID Exposure Sputum increase Shortness of breath with exertion Pain with inspiration Chief Complaints: Common ColdPMH: CancerPMH Reviewed at 11/27/2024 - 18:34Allergies Reviewed at 11/27/2024 - 18:34Comments: Seat Cover Cutter verified the name//address and phone number.Pt calling for since Tuesday with fever/ chills / cough/ sims/ body aches. She denies any nausea / vomiting. The cough is non-productive. She denies any sob.no h/o asthma / COPD. She has tried tylenol, allergy medicine/ nyquil and nothing seems to be helping. Her fever broke yesterday afternoon. She has a metallic taste but has not been eating muchPMH Breast CA < remissionEducation provided on the response time and the Patient was advised to monitor reported s/s and seek emergency treatment if needed Brand Executive Organization Information for [facility] Legal Name: [facility] Transportation Address: [address] [place] [address], [place] [address], Medical Staff Coordinator: Trey Barrow MD CLIA No.: [id number] Brand Executive POC Test Results from [facility] Rapid COVID antigen (19:34:01) COVID: - Rapid influenza antigen (19:34:01) Flu: - .................... .................... .................... .................... .................... .................... .................... . Brand Executive Note From [facility]: Patient alert and oriented supine on couch. Patient complains of non-productive cough, congestion tiredness diarrhea times three days. Patient denies difficulty breathing, headache, nausea, vomiting, dizziness, weakness, or any other pain or complaint. Patient reports she s been drinking water but has had a little appetite. Patient denies abdominal pain. Patient pink warm dry secondary exam unremarkable. Good skin, TURGOR, lung sounds clear negative increased work of breathing. Positive full sentences, abdomen, soft, nontender extremities unremarkable. Patient negative for Covid and flu via rapid POC. [facility] orders benzonatate and Mucinex to patient s local pharmacy for pickers material handlers tonight. Supportive care, what to expect, hydration return visit, red flags and a patient education discussed with patient and caregiver. Both demonstrate understanding of care and plan. Patient states she l l be able to obtain prescription tonight. [facility] Lab Orders: rapid SARS CoV 2 Ag, QL IA, respiratory specimen: Performed rapid flu (A+B): Performed .................... .................... .................... .................... .................... .................... .................... . [facility] Consulted: Janice Chen .................... .................... .................... .................... .................... .................... .................... . Disposition: FulfilledSEGMD: As above- note diarrhea has stopped Janice Chen MD [address] [facility], [place], [phone], [employer] 11/28/2024 01:49:57 OBGyn Episode No OBEpisode recorded.
== END 2025-07-22 12:09 | disposition home or self-care (01) ==
LOC: HO.HMCFM 11:16
PROVIDERS: PCP Internal Medicine; Visit Provider Internal Medicine
DX: Z00.00 Encounter for general adult medical examination without abnormal findings (principal); K21.9 Gastro-esophageal reflux disease without esophagitis; E66.9 Obesity, unspecified; Z68.39 Body mass index [BMI] 39.0-39.9, adult; I10 Essential (primary) hypertension

== ENCOUNTER → 2025-07-22 11:15 | Outpatient (BNVA) | payer OTHER, SELFPAY | PROVIDERS: PCP Internal Medicine; Visit Provider Internal Medicine | DX: Z00.00 Encounter for general adult medical examination without abnormal findings (principal); K21.9 Gastro-esophageal reflux disease without esophagitis; I10 Essential (primary) hypertension; E66.9 Obesity, unspecified; Z68.39 Body mass index [BMI] 39.0-39.9, adult | CPT/HCPCS: 99396 ==